=== PATIENT | male | born 1940 | race Caucasian/White ===

== ENCOUNTER → 2018-07-28 | Outpatient (CLI) | payer MEDICARE, OTHER ==
[~2018-07-28] MED LIST: ACET500T68 PO; AZIT250T PO; BUDE10.22 IH; CIPR500T94 PO; DOCU100C28 PO; DOXY100T10 PO; FLUT16SP NS; FLUT9.9S NS; HYDR25TA PO; LACT1CAP2 PO; LEVO50TA PO; LOSA100T14 PO; MONT10TA6 PO; MULT-460 PO; OMEP20CA9 PO; PRED20TA PO; PRED5DRO16 NS; PREG50CA PO; PSYL0.526 PO; TAMS0.4C97 PO; TRAZ-85 PO; VENTOLIN HFA18 GM INH
--- NOTE | 2018-07-28 16:27 | EKG ---
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
[2018-07-28 16:34] LABS: BASO # 0.2 x10^3/uL (0.0-0.2); BASO % 2 % (0-3); EOS # 0.7 x10^3/uL (0.0-0.7); EOS % 9 % (0-3); HEMATOCRIT 42.5 % (39.0-53.0); HEMOGLOBIN 13.8 g/dL (13.0-17.5); LYMPH # 2.3 x10^3/uL (1.0-4.8); LYMPH % 27 % (24-48); MEAN CORPUSCULAR HEMOGLOBIN 28 pg (25-35); MEAN CORPUSCULAR HGB CONC 33 g/dL (31-37); MEAN CORPUSCULAR VOLUME 87 fL (79-100); MONO # 0.6 x10^3/uL (0.0-1.1); MONO % 7 % (0-9); NEUT # 4.7 x10^3uL (1.8-7.7); NEUT % 55 % (31-73); PLATELET COUNT 271 x10^3/uL (140-400); RED BLOOD COUNT 4.87 x10^6/uL (4.30-5.70); RED CELL DISTRIBUTION WIDTH 14.7 % (11.5-14.5); WHITE BLOOD COUNT 8.5 x10^3/uL (4.0-11.0)
[2018-07-28 16:51] LABS: ALBUMIN 3.9 g/dL (3.4-5.0); ALBUMIN/GLOBULIN RATIO 1.3 (1.0-1.7); GFR 72.8; POTASSIUM 4.4 mmol/L (3.5-5.1); TOTAL BILIRUBIN 0.4 mg/dL (0.2-1.0); TOTAL PROTEIN 6.9 g/dL (6.4-8.2)
== END | disposition home or self-care (01) ==
LOC: SURGPAT 13:20
PROVIDERS: ATTEND Neurological Surgery
DX: Z01.818 Encounter for other preprocedural examination (principal); M48.02 Spinal stenosis, cervical region; I10 Essential (primary) hypertension
CPT/HCPCS: 36415; 80053; 85025; 87641; 93005

== ENCOUNTER → 2018-10-06 | Outpatient (CLI) | payer MEDICARE, OTHER ==
[2018-08-08 11:00] VITALS: BP 167/91
[~2018-10-06] MED LIST changes: +CEPH500C PO; +HYDR-2761 PO; +OMEP20CA10 PO; -OMEP20CA9 PO; +TRAM50TA PO; +TRAZ-118 PO; -TRAZ-85 PO
[2018-10-06 15:14] LABS: BASO # 0.1 x10^3/uL (0.0-0.2); BASO % 1 % (0-3); EOS # 0.6 x10^3/uL (0.0-0.7); EOS % 8 % (0-3); HEMATOCRIT 39.4 % (39.0-53.0); HEMOGLOBIN 12.8 g/dL (13.0-17.5); LYMPH # 1.8 x10^3/uL (1.0-4.8); LYMPH % 25 % (24-48); MEAN CORPUSCULAR HEMOGLOBIN 28 pg (25-35); MEAN CORPUSCULAR HGB CONC 33 g/dL (31-37); MEAN CORPUSCULAR VOLUME 85 fL (79-100); MONO # 0.5 x10^3/uL (0.0-1.1); MONO % 6 % (0-9); NEUT # 4.5 x10^3uL (1.8-7.7); NEUT % 60 % (31-73); PLATELET COUNT 258 x10^3/uL (140-400); RED BLOOD COUNT 4.66 x10^6/uL (4.30-5.70); WHITE BLOOD COUNT 7.5 x10^3/uL (4.0-11.0)
[2018-10-06 15:24] LABS: PROTHROMBIN TIME PATIENT 13.5 SEC (11.7-14.0)
[2018-10-06 15:31] LABS: ALBUMIN 3.6 g/dL (3.4-5.0); ALBUMIN/GLOBULIN RATIO 1.3 (1.0-1.7); CALCIUM 8.6 mg/dL (8.5-10.1); GFR 72.8; POTASSIUM 4.3 mmol/L (3.5-5.1); TOTAL BILIRUBIN 0.4 mg/dL (0.2-1.0); TOTAL PROTEIN 6.4 g/dL (6.4-8.2)
== END | disposition home or self-care (01) ==
LOC: SURGPAT 14:07
PROVIDERS: ATTEND Neurological Surgery
DX: Z01.818 Encounter for other preprocedural examination (principal); M51.14 Intervertebral disc disorders with radiculopathy, thoracic region; M48.04 Spinal stenosis, thoracic region; I10 Essential (primary) hypertension; Z79.2 Long term (current) use of antibiotics; Z79.899 Other long term (current) drug therapy; Z79.01 Long term (current) use of anticoagulants
CPT/HCPCS: 36415; 80053; 85025; 85610; 85730; 87641

== ENCOUNTER 2018-10-17 05:37 | Inpatient (IN) | payer MEDICARE, OTHER ==
--- NOTE | 2018-10-16 15:51 | PREOP HP ---
DATE OF SERVICE: 10/17/2018. HISTORY OF PRESENT ILLNESS: The patient is a pleasant 77-year-old who 2 months ago underwent an ACDF at C5-C6 and C6-C7 for cervical spinal stenosis. He notes improving neck pain. He continues to have trouble with his right arm and hands, though. He says that he remains uncoordinated. He does continue to note some pain in the medial superior right scapula. He feels his balance is satisfactory, although he is using a cane. He is also having problems with low back pain and can have left leg pain. He has trouble getting up and down and walking any distance because of that. At the time of his cervical surgery, which was an ACDF at C5-C6 and C6-C7, he was noted to have a herniated disc on the right at T1-T2. PAST MEDICAL HISTORY: Arthritis, asthma, COPD, headaches and migraines, head or neck injury, heart murmur, hypertension, scarlet fever. PAST SURGICAL HISTORY: Broken right ankle in 1949, hemorrhoidectomy in 1994, subdural hematoma in 2010, right knee replacement in 2015, right shoulder replacement in 2016, ACDF C5-C6 and C6-C7 in 07/2018. FAMILY HISTORY: Alzheimer's disease and hypertension. SOCIAL HISTORY: Retired. . Exercises daily. Denies substance abuse. Denies current tobacco use. Formal alcohol use. Drinks coffee and soda daily. ALLERGIES: ASPIRIN, PENICILLIN, NSAIDS and STATINS. CURRENT MEDICATIONS: Robaxin, Lyrica, losartan, trazodone, Flomax, Synthroid, omeprazole, psyllium, docusate sodium, multivitamin, acidophilus, Tylenol, Flonase, prednisone, montelukast sodium, albuterol, Symbicort, Zithromax, prednisone, ciprofloxacin sinus rinse, tramadol. REVIEW OF SYSTEMS: A 12-point review of systems was obtained and is noncontributory except for that mentioned above. PHYSICAL EXAMINATION: NEUROSURGERY EXAMINATION: GENERAL APPEARANCE: Pleasant, in no acute distress. HEAD: Normocephalic and atraumatic. NECK AND THYROID: Mild to moderate tenderness with palpation of the posterior cervical region. Incision well healed. SKIN: Warm and dry. MUSCULOSKELETAL: Cervical range of motion restricted. EXTREMITIES: No clubbing, cyanosis, or edema. NEUROLOGIC: Alert and oriented. Strength is 5/5 in upper and lower extremities bilaterally except for abduction and adduction of his fingers in the right side along with a 4/5 right flexor digiti minimi, sensory intact to light touch in the upper and lower extremities except for decrease sensation involving the little finger and ulnar side of the right hand, reflexes trace and symmetric in upper and lower extremities, ambulates with a cane. IMAGING: I reviewed his previous imaging studies. T1-T2 on the right, there is moderately large disc herniation. ASSESSMENT/ PLAN: At this point, we need to move forward with his cervical thoracic microdecompressive and microdiscectomy surgery via posterior costotransversectomy approach. I discussed this with the patient and his . We are going to move forward with this. I outlined the risks in the past as well as the surgery and the technique. We reviewed this again. He understands. He would like to go ahead. We will make the arrangements. MERCEDEZ PADRON MD DR: SHELDON/madi JOB#: [id number] / [id number] BOZENA
[~2018-10-17] VITALS: Ht 172.7 cm; Wt 86.2 kg
[2018-10-17] VITALS (11 sets, daily range): BP systolic 125–158; BP diastolic 79–110
[~2018-10-17 05:37] MED LIST changes: -TRAM50TA PO
[2018-10-17] MEDS ORDERED: BUPIVAC MPF-EPI 0.5%-1:200000 30 ML VIAL. ONE (05:51)
[2018-10-17] MEDS ORDERED: GELATIN SPONGE SIZE 100. ONE (05:51)
[2018-10-17] MEDS ORDERED: KETOROLAC 60 MG/2 ML INJ FOR OR. ONE (05:52)
[2018-10-17] MEDS ORDERED: THROMBIN TOPICAL 20,000 UNIT SPRAY.SYRN KIT TP ONE (05:52)
[2018-10-17] MEDS ORDERED: VANCOMYCIN 1GM IVPB FOR OMNI 250 ML IV ONE (06:00)
[2018-10-17] MEDS ORDERED: BACITRACIN 50,000 UNIT in IV NORMAL SALINE 1000ML BAG 1,000 ML IRR ONE (06:00)
[2018-10-17] MEDS ORDERED: fentaNYL PF VIAL 100 MCG/2 ML VIAL IV PRN (07:00)
[2018-10-17] MEDS ORDERED: HYDROmorphone 2 MG/ML VIAL IV PRN (07:00)
[2018-10-17] MEDS ORDERED: IV RINGERS,LACTATED 1000ML 1,000 ML IV SCH (07:00)
[2018-10-17] MEDS ORDERED: MORPHINE SULFATE 2 MG/ML VIAL. IV PRN (07:00)
[2018-10-17] MEDS ORDERED: PROCHLORPERAZINE 10 MG/2 ML VIAL. IV PRN (07:00)
[2018-10-17] MEDS ORDERED: TRAM50TA PO (07:21)
[2018-10-17] MEDS ORDERED: LIDOCAINE 2% PF 5 ML VIAL. ONE (07:56)
[2018-10-17] MEDS ORDERED: PROPOFOL 50 ML IV ONE ×3 (07:56→12:27)
[2018-10-17] MEDS ORDERED: DEXAMETHASONE SOD PHOS 20 MG/5 ML VIAL. ONE (07:56)
[2018-10-17] MEDS ORDERED: PROPOFOL 20 ML IV ONE (07:56)
[2018-10-17] MEDS ORDERED: REMIFENTANIL 2 MG VIAL. IV ONE (07:57)
[2018-10-17] MEDS ORDERED: PHENYLEPHRINE 10 MG/ML VIAL. ONE (07:57)
[2018-10-17] MEDS ORDERED: ROCURONIUM 50 MG/5 ML VIAL. ONE (07:57)
[2018-10-17] MEDS ORDERED: GLYCOPYRROLATE 1 MG/5 ML VIAL. ONE (09:06)
[2018-10-17] MEDS ORDERED: ePHEDrine PF IN SALINE 50 MG/10 ML SYRINGE. IV ONE (09:24)
[2018-10-17] MEDS ORDERED: NEOSTIGMINE METHYLSULFATE 5 MG/5 ML SYRINGE. ONE (09:31)
[2018-10-17] MEDS ORDERED: DESFLURANE > 120 MINUTES IH ONE (11:07)
[2018-10-17] MEDS ORDERED: ONDANSETRON PF 4 MG/2 ML VIAL. ONE (12:23)
[2018-10-17] MEDS ORDERED: fentaNYL PF VIAL 100 MCG/2 ML VIAL ONE ×2 (12:37→13:27)
[2018-10-17] MEDS ORDERED: ACETAMINOPHEN 325 MG TABLET. PO PRN (13:45)
[2018-10-17] MEDS ORDERED: traMADol 50 MG TABLET PO PRN (13:45)
[2018-10-17] MEDS ORDERED: MAG HYDROX/ALUMINUM HYD/SIMETH 30 ML ORAL.SUSP PO PRN (13:45)
[2018-10-17] MEDS ORDERED: FLUTICASONE 50MCG/NASAL SPRAY 16GM BOTTLE. NS PRN (13:45)
[2018-10-17] MEDS ORDERED: MAGNESIUM HYDROXIDE 2,400 MG/30 ML ORAL.SUSP. PO PRN (13:45)
[2018-10-17] MEDS ORDERED: 0.9 % SODIUM CHLORIDE 10 ML DISP.SYRIN. IV PRN (13:45)
[2018-10-17] MEDS ORDERED: diphenhydrAMINE HCL 25 MG CAPSULE PO PRN (13:45)
[2018-10-17] MEDS ORDERED: CALCIUM CARBONATE 500 MG TAB.CHEW PO PRN (13:45)
[2018-10-17] MEDS: fentaNYL PF VIAL 100 MCG/2 ML VIAL IV PRN ×5 (13:49→20:03)
--- NOTE | 2018-10-17 14:15 | NUR ---
Admitted from PACU per bed, alert/oriented, dressing clean dry & intact to thoracic area, states discomfort level 4-5/10, ice pack to area, bilateral JESSICA hose in place, bilateral HOLLEY in place, IVF infusing into right wrist area, noted red chloe across chest from surgical positioning, oriented to surroundings, spouse at bedside, side rails up x2, call light in reach.
[2018-10-17] MEDS ORDERED: ACETAMINOPHEN 500 MG TABLET PO PRN (14:45)
[2018-10-17] MEDS: LOSARTAN POTASSIUM 50 MG TABLET. PO SCH (15:00)
[2018-10-17] MEDS ORDERED: FLUTICASONE 50MCG/NASAL SPRAY 16GM BOTTLE. NS SCH (15:00)
--- NOTE | 2018-10-17 16:23 | RAD ---
CT thoracic spine without contrast History: Back pain Axial helical images of the thoracic spine were obtained without contrast. Axial, coronal and sagittal reconstruction was performed. Findings: The vertebral bodies are aligned. There is no loss of vertebral body stature. Evaluation of the central canal is limited without contrast. There is no evidence of significant central or neuroforaminal stenosis. There's been prior anterior anterior fusion of C5-C7. There is degenerative changes with multilevel central and neuroforaminal stenosis of the C3-C7 spine. Impression: Degenerative changes of the C-spine with prior anterior fusion. No acute findings. No significant central or neuroforaminal stenosis of the thoracic spine. PQRS Compliance Statement: One or more of the following individualized dose reduction techniques were utilized for this examination: 1. Automated exposure control 2. Adjustment of the mA and/or kV according to patient size 3. Use of iterative reconstruction technique Electronically signed by: Leobardo Sosa III, MD (10/17/2018 4:20 PM) [facility]
[2018-10-17] MEDS: PANTOPRAZOLE 40 MG TABLET.DR. PO SCH (16:40)
--- NOTE | 2018-10-17 16:59 | NUR ---
Attempting to void, notified of catheter in use during surgical procedure
[2018-10-17] MEDS: POTASSIUM CL 20MEQ D5-0.45NACL 1,000 ML IV SCH (17:03)
[2018-10-17] MEDS: METHOCARBAMOL 750 MG TABLET PO SCH ×2 (17:04→21:15)
[2018-10-17] MEDS: PREGABALIN 50 MG CAPSULE PO SCH ×2 (17:05→21:15)
[2018-10-17] MEDS: LACTOBACILLUS RHAMNOSUS GG 1 CAPSULE. PO SCH (17:05)
[2018-10-17] MEDS: oxyCODONE/APAP 5/325 1 TAB TABLET PO PRN ×3 (17:05→23:46)
[2018-10-17] MEDS: hydrOXYzine PAMOATE 25 MG CAPSULE PO SCH ×2 (17:06→21:15)
[2018-10-17] MEDS: POLYVINYL ALCOHOL 1.4% OPHTH SOLUTION 15ML BOTTLE. OU PRN (17:07)
--- NOTE | 2018-10-17 17:14 | NUR ---
Voided 100cc of clear yellow urine, taking oral fluids
[2018-10-17] MEDS: DEXAMETHASONE SOD PHOS 4 MG/ML VIAL IV SCH ×2 (17:38→23:45)
[2018-10-17] MEDS ORDERED: methylPREDNISolone SOD SUCC PF 40 MG/ML VIAL. IV SCH (18:00)
[2018-10-17] MEDS: BUDESONIDE 0.5 MG/2 ML NEBU. NEB SCH (19:58)
[2018-10-17] MEDS: ALBUTEROL SULFATE 2.5 MG/3 ML NEBU. NEB SCH ×2 (19:58→23:38)
[2018-10-17] MEDS: PSYLLIUM HUSK (SUGAR FREE) 1 PKT PACKET PO SCH (21:00)
[2018-10-17] MEDS ORDERED: NON FORMULARY ITEM (Fluticasone Propionate (Flonase Allergy Relief) 2 SPRAYS) NS SCH (21:00)
[2018-10-17] MEDS ORDERED: PREDNISOLONE ACETATE NS SCH (21:00)
[2018-10-17] MEDS ORDERED: traZODone 50 MG TABLET. PO SCH (21:00)
[2018-10-17] MEDS ORDERED: MONTELUKAST SODIUM 10 MG TABLET. PO SCH (21:00)
[2018-10-17] MEDS ORDERED: NON FORMULARY ITEM (Budesonide/Formoterol Fumarate (Symbicort 80-4.5 Mcg Inhaler) 2 PUFF) IH SCH (21:00)
[2018-10-17] MEDS ORDERED: DOCUSATE SODIUM 100 MG CAPSULE. PO SCH (21:00)
[2018-10-17] MEDS: DOCUSATE SODIUM 100 MG CAPSULE. PO SCH (21:16)
[2018-10-17] MEDS: FLUTICASONE 50MCG/NASAL SPRAY 16GM BOTTLE. NS SCH (21:17)
[2018-10-18] MEDS: fentaNYL PF VIAL 100 MCG/2 ML VIAL IV PRN (01:26)
[2018-10-18] MEDS: POTASSIUM CL 20MEQ D5-0.45NACL 1,000 ML IV SCH (02:56)
[2018-10-18 03:30] VITALS: BP 156/83
[2018-10-18] MEDS: oxyCODONE/APAP 5/325 1 TAB TABLET PO PRN ×2 (05:47→12:07)
[2018-10-18] MEDS: PANTOPRAZOLE 40 MG TABLET.DR. PO SCH (05:47)
[2018-10-18] MEDS: DEXAMETHASONE SOD PHOS 4 MG/ML VIAL IV SCH (05:48)
[2018-10-18] MEDS ORDERED: LEVOTHYROXINE 50 MCG TABLET PO SCH (06:00)
[2018-10-18 07:00] VITALS: BP 130/75
[2018-10-18] MEDS: BUDESONIDE 0.5 MG/2 ML NEBU. NEB SCH (07:23)
[2018-10-18] MEDS: ALBUTEROL SULFATE 2.5 MG/3 ML NEBU. NEB SCH ×2 (07:23→11:19)
[2018-10-18] MEDS: LACTOBACILLUS RHAMNOSUS GG 1 CAPSULE. PO SCH (08:32)
[2018-10-18] MEDS: hydrOXYzine PAMOATE 25 MG CAPSULE PO SCH (08:32)
[2018-10-18] MEDS: METHOCARBAMOL 750 MG TABLET PO SCH ×2 (08:33→12:07)
[2018-10-18] MEDS: PSYLLIUM HUSK (SUGAR FREE) 1 PKT PACKET PO SCH (08:34)
[2018-10-18] MEDS: DOCUSATE SODIUM 100 MG CAPSULE. PO SCH (08:34)
[2018-10-18] MEDS: PREGABALIN 50 MG CAPSULE PO SCH (08:34)
[2018-10-18] MEDS: FLUTICASONE 50MCG/NASAL SPRAY 16GM BOTTLE. NS SCH (08:35)
[2018-10-18] MEDS: LOSARTAN POTASSIUM 50 MG TABLET. PO SCH (08:35)
[2018-10-18] MEDS: POLYVINYL ALCOHOL 1.4% OPHTH SOLUTION 15ML BOTTLE. OU PRN (08:35)
[2018-10-18] MEDS ORDERED: MULTIVITAMIN with MINERAL TABLET. PO SCH (09:00)
--- NOTE | 2018-10-18 09:35 | NUR ---
resting quietly with eyes closed. at bedside. he has good sensation in bilateral hands except for his right ring and little finger. plans examiner are equal and strong, good pulses bilaterally. 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 original surgical dressing removed. has swelling at the top of incision; cleansed with ChloraPrep then Aquacel foam applied. he had a small amount of serosanguineous drainage.
[2018-10-18] MEDS ORDERED: AZITHROMYCIN 250 MG TABLET. PO SCH (10:00)
[2018-10-18 11:00] VITALS: BP 113/71
--- NOTE | 2018-10-18 12:11 | NUR ---
reviewed written discharge instructions with sophia and Honey regarding activities of daily living such as bathing driving lifting restrictions and activity. demonstrated dressing changes; supplies given. reviewed medications and new and discussed one to be taken today; both verbalized understanding
--- NOTE | 2018-10-20 17:06 | PATHOLOGY ---
[facility] Accession Number: [id number] . 01 Material submitted: . vertebral column - THORACIC DISC AND DECOMPRESSION . 01 Clinical history: . Radiculopathy, thoracic herniated disc, stenosis . 02 Diagnosis: Segments of fibrocartilaginous tissue and bone, thoracic disc and decompression: - Degenerative changes of fibrocartilaginous tissue with focal granulomatous inflammatory reaction. 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 02 Comment: There is no evidence of an acute inflammatory process or malignancy. 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 02 Electronically signed: . Derek Griffith MD, Pathologist NPI- [id number] . 01 Gross description: . Received in formalin labeled "Adria Echeverria, thoracic disc and decompression," are several pieces of glistening, fibrous tissue measuring 3.0 x 1.5 x 0.8 cm in aggregate dimensions, containing small fragments of possible bone. The tissue submitted representatively in cassette A1, following decalcification. (TSD; 10/17/2018) TOB/TOB . 02 Pathologist provided ICD-10: M51.14, M99.72 . 02 CPT . 141975, 360293 Specimen Comment: A courtesy copy of this report has been sent to Specimen Comment: [phone], . Specimen Comment: Report sent to / DR CULVER Performed at: 01 [facility] [address], [place], [place] [id number] MD Jose Luis Pinzon MD Phone: [phone] Performed at: 02 [facility] [address] [place], [place] [id number] MD Derek Griffith MD Phone: [phone]
--- NOTE | 2018-10-25 02:43 | OP ---
DATE OF SURGERY: 10/17/2018 PREOPERATIVE DIAGNOSIS: T1-T2 herniated nucleus pulposus on the right with right cervical radiculopathy. POSTOPERATIVE DIAGNOSIS: T1-T2 herniated nucleus pulposus on the right with right cervical radiculopathy. OPERATION PERFORMED: 1. Right lateral canal and transfacet exposure, T1-T2, right with T1-T2 discectomy and decompression of the right T1 nerve root. 2. Right canal laminectomy, T1 with decompression and visualization of the right C8 nerve root. 3. The operation done with EMG monitoring, SSEP monitoring, motor evoked potentials, fluoroscopy, microscopic dissection, BrainLAB guidance. SURGEON: Nathen Padron M.D. MEDICAL SECRETARY RECEPTIONIST: EVONNE Ponce assisted with the surgery. She assisted with the exposure, the microdecompression and decompression of the lateral side of the canal as well as the closure. OPERATIVE INDICATIONS: The patient is a very pleasant 77-year-old who initially presented with problems of cervical stenosis and right hand weakness as well as numbness, which radiated into his axillary region and into the lateral forearm and hand along with significant hand weakness. On imaging studies, he had a large T1-T2 thoracic disc herniation on the right side, which was compressing the right canal as well as the exiting nerve root at that level, and I recommended microsurgical decompression after he had undergone an anterior cervical discectomy and fusion for cervical spinal stenosis and that had been dealt with. He understood the surgery and the risks, the technique and he wished to go ahead. DESCRIPTION OF PROCEDURE: Following general endotracheal anesthesia, the patient was positioned prone on the Remi table. The thoracic region was then prepped and draped in a standard fashion. JESSICA hose and AV impulse boots were applied for DVT prophylaxis. A microscope was draped. Fluoroscopy was draped and brought into the field. Vancomycin 1 g was given prior to surgery. I made a small incision over the C6 spinous process and attached the BrainLAB system and started at this location and initialized the BrainLAB. I then made an incision extending from C7 through T1-T2, dissected down through skin and subcutaneous tissue and reflected the paraspinal muscles to the right side and placed self-retaining retractor. I brought in the microscope during this time. Through the microscope, I used a high speed air drill to first drill along the lateral edge of the canal at T1-T2. I identified the pedicle of T2 and then working superiorly, I visualized the nerve root and followed this laterally and fully decompressed this carrying my decompression out toward the costal attachment. I then, working more medially, visualized the disc space at T1-T2 and then drilled the lateral canal superiorly exposing the dura and trimmed away ligamentum flavum again exposing the dura and visualizing the T1 nerve root, it was lifted and tightly compressed. I gently developed a plane beneath this and beneath the dura with the blunt hook. I incised the posterior ligament and I began to perform a discectomy with pituitary rongeurs opening up slightly the disc space at T1-T2. The disc was hard and I gently retracted the dura medially and then began to drill into this material and trimmed this with a 2 mm micro Kerrison, but as I worked, I was able to remove significant disc material from this location and gradually decompress the nerve root working superiorly along the lateral aspect of the dura. Then, I carried this up to the C7-T1 region. Working around the pedicle of T1 and visualizing the takeoff of the C8 root and assured myself that that root was not under any significant pressure in that location. I then irrigated copiously. I felt that I had an excellent decompression. The roots were very free. I irrigated. I then removed the retractor, irrigated the muscle, obtained excellent hemostasis and I closed the wound in layers with absorbable suture. The skin was closed with 4-0 subcuticular stitch. The operation went very well and the patient went to the recovery room in excellent condition. I was quite pleased with the surgery. NATHEN PADRON MD DR: SHELDON/madi JOB#: [id number] / [id number] BOZENA
== END 2018-10-18 13:10 | disposition home or self-care (01) | DRG 520 ==
LOC: OPSVCIP 05:37 → EDSTATUS 08:30 → 4 SOUTHEST 14:15
PROVIDERS: ADMIT Neurological Surgery; ATTEND Neurological Surgery
PROC: 01N80ZZ Release Thoracic Nerve, Open Approach (ICD-10-PCS; 2018-10-17)
PROC: 4A11X4G Monitoring of Peripheral Nervous Electrical Activity, Intraoperative, External Approach (ICD-10-PCS; 2018-10-17)
PROC: 0RB90ZZ Excision of Thoracic Vertebral Disc, Open Approach (ICD-10-PCS; principal; 2018-10-17 08:30)
DX: M51.14 Intervertebral disc disorders with radiculopathy, thoracic region (principal); M50.122 Cervical disc disorder at C5-C6 level with radiculopathy; M50.123 Cervical disc disorder at C6-C7 level with radiculopathy; M50.223 Other cervical disc displacement at C6-C7 level; M51.24 Other intervertebral disc displacement, thoracic region; I10 Essential (primary) hypertension; J44.9 Chronic obstructive pulmonary disease, unspecified; Z82.0 Family history of epilepsy and other diseases of the nervous system; Z82.49 Family history of ischemic heart disease and other diseases of the circulatory system; Z96.651 Presence of right artificial knee joint; Z96.611 Presence of right artificial shoulder joint; G43.909 Migraine, unspecified, not intractable, without status migrainosus; M19.90 Unspecified osteoarthritis, unspecified site
CPT/HCPCS: 36415; 72131; 76000; 86850; 86900; 86901; 88304; 88311; 94640; A7015; J0171; J1100; J1885; J2001; J2405; J2704; J2710; J3010; J3370; J3490; J7030; J7120; J7613; J7626; Q0144; Q0177; 97116

== ENCOUNTER → 2018-12-23 | Outpatient (CLI) | payer MEDICARE, OTHER ==
[~2018-12-23] MED LIST changes: +METH-38 PO; +MONT10TA49 PO; -MONT10TA6 PO; +OXYC1TAB15 PO; +TRAM50TA PO
== END | disposition home or self-care (01) ==
LOC: SURGPAT 11:55
PROVIDERS: ATTEND Neurological Surgery
DX: Z01.818 Encounter for other preprocedural examination (principal); M51.16 Intervertebral disc disorders with radiculopathy, lumbar region; Z88.0 Allergy status to penicillin; Z88.6 Allergy status to analgesic agent; Z88.8 Allergy status to other drugs, medicaments and biological substances
CPT/HCPCS: 36415; 87641

== ENCOUNTER 2019-01-01 06:25 | Observation (INO) | payer MEDICARE, OTHER ==
--- NOTE | 2018-12-31 15:23 | PREOP HP ---
DATE OF SERVICE: 01/01/2019 DATE OF SURGERY: 01/01/2019 HISTORY OF PRESENT ILLNESS: The patient is a pleasant 78-year-old who has severe cervical stenosis as well as upper thoracic disk herniation in the past that has been dealt with. His current problem is significant low back pain, which radiates primarily to his right hip and right anterior thigh. He notes right greater than left knee and leg pain. He has had problems for many years, but the problems have been worsening over the last several months. He does take oxycodone three per day. He also takes Robaxin. He is continuing to notice interscapular pain. PAST MEDICAL HISTORY: Arthritis, asthma, COPD, headache or migraine, head or neck injury, heart murmur, hypertension, scarlet fever. PAST SURGICAL HISTORY: Broken right ankle 1948, hemorrhoidectomy 1994, subdural hematoma in 2010, right knee replacement in 2005, right shoulder replacement in 2016 and ACDF C5-C6, C6-C7 in 07/2018; T1-T2 right microdiskectomy in 09/2018. FAMILY HISTORY: Alzheimer's disease and hypertension. SOCIAL HISTORY: Retired. . Exercises daily. Denies substance abuse. Denies current tobacco use. Former alcohol use. Drinks coffee and soda daily. ALLERGIES: TO ASPIRIN, PENICILLIN, NSAIDS, AND STATINS. CURRENT MEDICATIONS: Robaxin, Lyrica, losartan, trazodone, hydroxyzine, Flomax, Synthroid, omeprazole, psyllium, docusate, multivitamin, acidophilus, Tylenol, Flonase, montelukast, albuterol, Symbicort, Zithromax, prednisone, doxycycline, ciprofloxacin, sinus rinse, tramadol, cephalexin, methocarbamol, Percocet. REVIEW OF SYSTEMS: A 12-point review of systems was obtained and is noncontributory except for that mentioned above. PHYSICAL EXAMINATION: NEUROSURGERY EXAMINATION: GENERAL APPEARANCE: Alert, pleasant, no acute distress. HEAD: Normocephalic and atraumatic. SKIN: Warm and dry. MUSCULOSKELETAL: Lumbar paraspinal muscle bulk is normal, restricted range of motion of the lumbar spine, [id number] tenderness of the lower lumbar spine with palpation, normal range of motion of the lower extremities bilaterally. EXTREMITIES: No clubbing, cyanosis or edema. NEUROLOGIC: Alert and oriented x 3, normal recent and remote memory. Strength 5/5 in bilateral lower extremities except for 4+/5 right quadriceps. Sensory was intact to light touch in the lower extremities bilaterally. Reflexes were present and symmetric in the bilateral lower extremities, negative straight leg raising bilaterally. IMAGING: Reviewed. I have reviewed a lumbar MRI scan done, 11/21/2018. On that study, there is a new large right paramedian disk extrusion at L3-L4, which does extend superiorly between the L3 vertebral body and mass effect on the L3 nerve root as well as right L4 root. ASSESSMENT: Intervertebral disk disorders with radiculopathy, lumbar region. PLAN: He is having increasing pain along with feelings of weakness and unsteadiness related to his lower back and right leg pain. My recommendation is that he undergo lumbar microsurgery at L3-L4. I discussed this with him in detail. He understands the rationale, risks and expected postoperative course. He would like to go ahead. We will make the arrangements. MERCEDEZ PADRON MD DR: SHELDON/madi JOB#: [id number] / [id number]
[~2019-01-01] VITALS: Ht 170.2 cm; Wt 87.1 kg
[2019-01-01] VITALS (10 sets, daily range): BP systolic 125–165; BP diastolic 69–95
[~2019-01-01 06:25] MED LIST changes: +BACITRACIN 50,000 UNIT in IV NORMAL SALINE 1000ML BAG 1,000 ML IRR ONE; +BUPIVAC MPF-EPI 0.5%-1:200000 30 ML VIAL. ONE; +GELATIN SPONGE SIZE 12-7MM SPONGE. ONE; +KETOROLAC 60 MG/2 ML INJ FOR OR. ONE; +THROMBIN TOPICAL 20,000 UNIT SPRAY.SYRN KIT TP ONE
[2019-01-01] MEDS ORDERED: IV RINGERS,LACTATED 1000ML 1,000 ML IV SCH (07:00)
[2019-01-01] MEDS ORDERED: MORPHINE SULFATE 2 MG/ML VIAL. IV PRN (07:00)
[2019-01-01] MEDS ORDERED: PROCHLORPERAZINE 10 MG/2 ML VIAL. IV PRN (07:00)
[2019-01-01] MEDS ORDERED: HYDROmorphone 2 MG/ML VIAL IV PRN (07:00)
[2019-01-01] MEDS ORDERED: fentaNYL PF VIAL 100 MCG/2 ML VIAL IV PRN ×3 (07:00→12:00)
[2019-01-01] MEDS ORDERED: ONDANSETRON PF 4 MG/2 ML VIAL. IV PRN (07:00)
[2019-01-01] MEDS ORDERED: LIDOCAINE 1% PF 2 ML VIAL. ID PRN (07:00)
[2019-01-01] MEDS ORDERED: REMIFENTANIL 2 MG VIAL. IV ONE (07:41)
[2019-01-01] MEDS ORDERED: LIDOCAINE 2% PF 5 ML VIAL. ONE (07:41)
[2019-01-01] MEDS ORDERED: ROCURONIUM 50 MG/5 ML VIAL. ONE (07:41)
[2019-01-01] MEDS ORDERED: fentaNYL PF VIAL 100 MCG/2 ML VIAL ONE ×2 (07:41→12:02)
[2019-01-01] MEDS ORDERED: SUCCINYLCHOLINE 200 MG/10 ML VIAL. ONE (07:41)
[2019-01-01] MEDS ORDERED: PROPOFOL 20 ML IV ONE (07:41)
[2019-01-01] MEDS ORDERED: PROPOFOL 50 ML IV ONE ×2 (07:41→10:11)
[2019-01-01] MEDS ORDERED: 0.9 % SODIUM CHLORIDE 20 ML VIAL. IJ ONE (07:43)
[2019-01-01] MEDS ORDERED: ONDANSETRON PF 4 MG/2 ML VIAL. ONE (08:41)
[2019-01-01] MEDS ORDERED: DEXAMETHASONE SOD PHOS 20 MG/5 ML VIAL. ONE (08:41)
[2019-01-01] MEDS ORDERED: DESFLURANE > 120 MINUTES IH ONE (08:51)
[2019-01-01] MEDS ORDERED: PHENYLEPHRINE in 0.9% NACL PF 1 MG/10 ML SYRINGE. IV ONE (09:04)
[2019-01-01] MEDS ORDERED: ePHEDrine PF IN SALINE 50 MG/10 ML SYRINGE. IV ONE (09:27)
[2019-01-01] MEDS ORDERED: GELATIN SPONGE SIZE 12-7MM SPONGE. ONE ×2 (09:37→09:39)
--- NOTE | 2019-01-01 11:08 | DISCH ---
DISCHARGE INSTRUCTIONS Condition on Discharge Condition on Discharge: Stable Activity After Discharge Activity Instructions for Disc: Activity as tolerated, Avoid exertion, Walk in house Bathing Instructions: Shower-keep dressing dry Lifting Instructions after Dis: No heavy lifting, No pulling or pushing, Do not lift >10 pounds Exercise Instruction after Dis: Progress as tolerated Driving Instructions after Dis: No driving for 2 weeks Weight Bearing Status after Di: No restrictions, Full weight bearing, As tolerated Diet after Discharge Diet after Discharge: Regular Additional Diet Restrictions: resume home diet Diet Texture: Regular Liquid Texture: Thin Liquid Swallowing Supervision: None needed Wound Incision Care Wound/Incision Care: Ice to area for comfort, Keep wound/cast CDI, Change dressing Other wound/incision instructi: may remove dressing in 48 hours if dry then may shower, no soaking Wound Care Equipment: Dressings Contacting the after DC Call your doctor for: Concerns you may have Follow-Up Follow up with: Dr. Padron's nurse in 2 weeks [phone] Treatment/Equipment after DC Adaptive Equipment Issued: None MERCEDEZ PADRON MD Jan 01, 2019 11:08
[2019-01-01] MEDS ORDERED: NALOXONE 0.4 MG/ML VIAL. IV PRN (12:00)
[2019-01-01] MEDS ORDERED: diphenhydrAMINE HCL 25 MG CAPSULE PO PRN (12:00)
[2019-01-01] MEDS ORDERED: diphenhydrAMINE 50 MG/ML VIAL IV PRN (12:00)
[2019-01-01] MEDS ORDERED: FLUTICASONE 50MCG/NASAL SPRAY 16GM BOTTLE. NS PRN (12:00)
[2019-01-01] MEDS ORDERED: MAG HYDROX/ALUMINUM HYD/SIMETH 30 ML ORAL.SUSP PO PRN (12:00)
[2019-01-01] MEDS ORDERED: oxyCODONE/APAP 5/325 1 TAB TABLET PO PRN ×2 (12:00)
[2019-01-01] MEDS ORDERED: MAGNESIUM HYDROXIDE 2,400 MG/30 ML ORAL.SUSP. PO PRN (12:00)
[2019-01-01] MEDS ORDERED: ACETAMINOPHEN 325 MG TABLET. PO PRN (12:00)
[2019-01-01] MEDS ORDERED: predniSONE 10 MG TABLET PO PRN (12:00)
[2019-01-01] MEDS ORDERED: ceFAZolin 2GM PREMIX 2 GM/50 ML BAG IV ONE (12:00)
[2019-01-01] MEDS ORDERED: CALCIUM CARBONATE 500 MG TAB.CHEW PO PRN (12:00)
[2019-01-01] MEDS ORDERED: 0.9 % SODIUM CHLORIDE 10 ML DISP.SYRIN. IV PRN (12:00)
--- NOTE | 2019-01-01 12:45 | NUR ---
Arrived to unit by cart from PACU. Alert and oriented x's 4. Able to scoot over to bed without difficulty. Moves all extremities. Noted right hand sl weaker than left. Pt states its much better prior to surgery. Lower back dressing d/i. IVF's intact and infusing. JESSICA's and HOLLEY's on bilaterally. Oriented to room and controls. Side rails up x's 2 with call in reach.
[2019-01-01] MEDS ORDERED: NON FORMULARY ITEM (Albuterol Sulfate (Ventolin Hfa Inhaler) 2 PUFF) INH SCH (13:00)
[2019-01-01] MEDS ORDERED: ACETAMINOPHEN 500 MG TABLET PO PRN (13:15)
[2019-01-01] MEDS: POTASSIUM CL 20MEQ D5-0.45NACL 1,000 ML IV SCH (13:30)
[2019-01-01] MEDS: METHOCARBAMOL 750 MG TABLET PO SCH ×2 (13:50→21:23)
[2019-01-01] MEDS: hydrOXYzine 25 MG TABLET PO SCH ×2 (13:50→21:23)
[2019-01-01] MEDS: ALBUTEROL SULFATE 2.5 MG/3 ML NEBU. NEB SCH ×2 (15:40→20:38)
[2019-01-01] MEDS: BUDESONIDE 0.5 MG/2 ML NEBU. NEB SCH (20:38)
[2019-01-01] MEDS ORDERED: NON FORMULARY ITEM (Budesonide/Formoterol Fumarate (Symbicort 80-4.5 Mcg Inhaler) 2 PUFF) IH SCH (21:00)
[2019-01-01] MEDS: PSYLLIUM HUSK (SUGAR FREE) 1 PKT PACKET PO SCH (21:00)
[2019-01-01] MEDS ORDERED: DOCUSATE SODIUM 100 MG CAPSULE. PO SCH (21:00)
[2019-01-01] MEDS ORDERED: traZODone 50 MG TABLET. PO SCH (21:00)
[2019-01-01] MEDS ORDERED: MONTELUKAST SODIUM 10 MG TABLET. PO SCH (21:00)
[2019-01-01] MEDS: DOCUSATE SODIUM 100 MG CAPSULE. PO SCH (21:23)
[2019-01-01] MEDS: oxyCODONE/APAP 5/325 1 TAB TABLET PO PRN (21:23)
[2019-01-01] MEDS: FLUTICASONE 50MCG/NASAL SPRAY 16GM BOTTLE. NS SCH (21:24)
[2019-01-02] MEDS: POTASSIUM CL 20MEQ D5-0.45NACL 1,000 ML IV SCH (02:50)
[2019-01-02 03:00] VITALS: BP 160/56
[2019-01-02] MEDS ORDERED: LEVOTHYROXINE 50 MCG TABLET PO SCH (06:00)
[2019-01-02 06:50] VITALS: BP 143/85
[2019-01-02] MEDS: BUDESONIDE 0.5 MG/2 ML NEBU. NEB SCH (07:00)
[2019-01-02] MEDS: ALBUTEROL SULFATE 2.5 MG/3 ML NEBU. NEB SCH ×2 (07:00→10:56)
[2019-01-02] MEDS ORDERED: PANTOPRAZOLE 40 MG TABLET.DR. PO SCH (07:30)
[2019-01-02] MEDS: METHOCARBAMOL 750 MG TABLET PO SCH (07:43)
[2019-01-02] MEDS: PSYLLIUM HUSK (SUGAR FREE) 1 PKT PACKET PO SCH (07:43)
[2019-01-02] MEDS: oxyCODONE/APAP 5/325 1 TAB TABLET PO PRN (07:44)
[2019-01-02] MEDS: DOCUSATE SODIUM 100 MG CAPSULE. PO SCH (07:44)
[2019-01-02] MEDS ORDERED: LOSARTAN POTASSIUM 50 MG TABLET. PO SCH (09:00)
[2019-01-02] MEDS ORDERED: LACTOBACILLUS RHAMNOSUS GG 1 CAPSULE. PO SCH (09:00)
[2019-01-02] MEDS ORDERED: MULTIVITAMIN with MINERAL TABLET. PO SCH (09:00)
[2019-01-02] MEDS: FLUTICASONE 50MCG/NASAL SPRAY 16GM BOTTLE. NS SCH (09:00)
[2019-01-02] MEDS ORDERED: AZITHROMYCIN 250 MG TABLET. PO SCH (09:00)
--- NOTE | 2019-01-02 10:30 | NUR ---
reviewed orally discharge instructions with Honey and his Valarie. demonstrated dressing change-she prefers to change dressing for a couple days after. supplies given
[2019-01-02] MEDS: hydrOXYzine 25 MG TABLET PO SCH (10:32)
[2019-01-02 13:55] VITALS: BP 113/63
--- NOTE | 2019-01-02 14:01 | PDOC ---
PROGRESS NOTES Subjective Subjective POD #1 back/ incision sore leg pain improved Objective Objective Vital Signs Date Time Temp Pulse Resp B/P (MAP) Pulse Ox O2 Delivery O2 Flow Rate FiO2 01/02/19 13:55 98.2 75 20 113/63 (80) 98 98.2 01/02/19 10:57 Room Air 01/01/19 22:23 99.0 Intake and Output 01/02/19 06:59 Intake Total 800 ml Output Total 875 ml Balance -75 ml Intake Oral 800 ml Output Urine Total 835 ml Estimated Blood Loss 40 ml # Voids 5 Physical Exam General: Alert, Oriented X3, Cooperative MUSCULOSKELETAL: Other (JONES) Skin: Other (dressing dry and intact) Plan Plan of Care dc home f/u 2 weeks Comment Review of Relevant I have reviewed the following items chloe (where applicable) has been applied. Medications Current Medications Bacitracin 89321 unit/Sodium Chloride 1,000 ml @ 1,000 mls/hr 1X ONCE IRR Last administered on 01/01/19at 09:22; Start 01/01/19 at 06:00; Stop 01/01/19 at 06:59; Status DC Ondansetron HCl (Zofran) 4 mg PRN Q6HRS PRN IV NAUSEA/VOMITING; Start 01/01/19 at 07:00; Stop 01/01/19 at 20:00; Status DC Fentanyl Citrate (Fentanyl 2ml Vial) 25 mcg PRN Q5MIN PRN IV MILD PAIN 1-3 Last administered on 01/01/19at 12:08; Start 01/01/19 at 07:00; Stop 01/01/19 at 20:00; Status DC Fentanyl Citrate (Fentanyl 2ml Vial) 50 mcg PRN Q5MIN PRN IV MODERATE TO SEVERE PAIN; Start 01/01/19 at 07:00; Stop 01/01/19 at 20:00; Status DC Morphine Sulfate (Morphine Sulfate) 1 mg PRN Q10MIN PRN IV SEVERE PAIN 7-10; Start 01/01/19 at 07:00; Stop 01/08/19 at 20:00 Ringer's Solution 1,000 ml @ 30 mls/hr Q24H IV Last administered on 01/01/19at 07:00; Start 01/01/19 at 07:00; Stop 01/01/19 at 18:59; Status DC Lidocaine HCl (Xylocaine-Mpf 1% 2ml Vial) 2 ml PRN 1X PRN ID PRIOR TO IV START; Start 01/01/19 at 07:00; Stop 01/01/19 at 20:00; Status DC Hydromorphone HCl (Dilaudid) 0.5 mg PRN Q10MIN PRN IV SEV PAIN, Second choice; Start 01/01/19 at 07:00; Stop 01/01/19 at 20:00; Status DC Prochlorperazine Edisylate (Compazine) 5 mg PACU PRN PRN IV NAUSEA, MRX1; Start 01/01/19 at 07:00; Stop 01/01/19 at 20:00; Status DC Cefazolin Sodium/ Dextrose 50 ml @ 100 mls/hr 1X PREOP PRN IV PRIOR TO PROCEDURE Last administered on 01/01/19at 09:03; Start 01/01/19 at 06:00; Stop 01/01/19 at 18:00; Status DC Bupivacaine HCl/ Epinephrine Bitart (Sensorcain-Mpf Epi 0.5%-1:750879) 30 ml STK-MED ONCE .ROUTE Last administered on 01/01/19 09:22; Start 01/01/19 at 06:23; Stop 01/01/19 at 07:23; Status DC Gelatin (Gelfoam Size 12-7mm) 1 each STK-MED ONCE .ROUTE Last administered on 01/01/19at 09:22; Start 01/01/19 at 06:23; Stop 01/01/19 at 07:23; Status DC Ketorolac Tromethamine (Toradol For Or Only) 60 mg STK-MED ONCE .ROUTE Last administered on 01/01/19at 09:22; Start 01/01/19 at 06:23; Stop 01/01/19 at 07:23; Status DC Thrombin 20,000 unit STK-MED ONCE TP Last administered on 01/01/19 09:22; Start 01/01/19 at 06:23; Stop 01/01/19 at 07:23; Status DC Gelatin (Gelfoam Size 12-7mm) 1 each STK-MED ONCE .ROUTE Last administered on 01/01/19 09:22; Start 01/01/19 at 06:23; Stop 7/11/19 at 07:23; Status DC Lidocaine HCl (Lidocaine Pf 2% Vial) 5 ml STK-MED ONCE .ROUTE ; Start 01/01/19 at 07:41; Stop 01/01/19 at 07:42; Status DC Propofol 20 ml @ As Directed STK-MED ONCE IV ; Start 01/01/19 at 07:41; Stop 01/01/19 at 07:42; Status DC Propofol 50 ml @ As Directed STK-MED ONCE IV ; Start 01/01/19 at 07:41; Stop 01/01/19 at 07:42; Status DC Fentanyl Citrate (Fentanyl 2ml Vial) 100 mcg STK-MED ONCE .ROUTE ; Start at 07:41; Stop 01/01/19 at 07:42; Status DC Remifentanil HCl (Ultiva) 2 mg STK-MED ONCE IV ; Start 01/01/19 at 07:41; Stop 01/01/19 at 07:42; Status DC Succinylcholine Chloride (Anectine) 200 mg STK-MED ONCE .ROUTE ; Start 01/01/19 at 07:41; Stop 01/01/19 at 07:42; Status DC Rocuronium [place] (Zemuron) 50 mg STK-MED ONCE .ROUTE ; Start 01/01/19 at 07:41; Stop 01/01/19 at 07:42; Status DC Sodium Chloride (SODIUM CHLORIDE 20ml) 20 ml STK-MED ONCE IJ ; Start 01/01/19 at 07:43; Stop 01/01/19 at 07:44; Status DC Dexamethasone Sodium Phosphate (Decadron) 20 mg STK-MED ONCE .ROUTE ; Start 01/01/19 at 08:41; Stop 01/01/19 at 08:42; Status DC Ondansetron HCl (Zofran) 4 mg STK-MED ONCE .ROUTE ; Start 01/01/19 at 08:41; Stop 01/01/19 at 08:42; Status DC Desflurane (Suprane) 90 ml STK-MED ONCE IH ; Start 01/01/19 at 08:51; Stop 01/01/19 at 08:52; Status DC Phenylephrine HCl (PHENYLEPHRINE in 0.9% NACL PF) 1 mg STK-MED ONCE IV ; Start 01/01/19 at 09:04; Stop 01/01/19 at 09:05; Status DC Ephedrine Sulfate (ePHEDrine PF IN SALINE SYRINGE) 50 mg STK-MED ONCE IV ; Start 01/01/19 at 09:27; Stop 01/01/19 at 09:28; Status DC Propofol 50 ml @ As Directed STK-MED ONCE IV ; Start 01/01/19 at 10:11; Stop 01/01/19 at 10:12; Status DC Gelatin (Gelfoam Size 12-7mm) 1 each STK-MED ONCE .ROUTE Last administered on 01/01/19at 10:38; Start 01/01/19 at 09:37; Stop 01/01/19 at 10:37; Status DC Gelatin (Gelfoam Size 12-7mm) 1 each STK-MED ONCE .ROUTE ; Start 01/01/19 at 09:39; Stop 01/01/19 at 10:40; Status DC Azithromycin (Zithromax) 250 mg DAILY PO Last administered on 01/02/19at 10:33; Start 01/02/19 at 09:00 Docusate Sodium (Colace) 100 mg BID PO ; Start 01/01/19 at 21:00; Status UNV Fluticasone Propionate (Flonase) 2 spray PRN DAILY PRN NS ELEVATED BP, SEE COMMENTS; Start 01/01/19 at 12:00; Stop 01/01/19 at 13:00; Status DC Hydroxyzine HCl (Atarax) 25 mg TID PO Last administered on 01/02/19at 10:32; Start 01/01/19 at 14:00 Montelukast Sodium (Singulair) 10 mg QHS PO Last administered on 01/01/19at 21:23; Start 01/01/19 at 21:00 Oxycodone/ Acetaminophen (Percocet 5/325) 1 tab PRN Q6HRS PRN PO PAIN; Start 01/01/19 at 12:00; Status Cancel Prednisone (Prednisone) 10 mg PRN DAILY PRN PO URI; Start 01/01/19 at 12:00 Acetaminophen (Tylenol) 500 mg PRN Q4HRS PRN PO MILD PAIN / TEMP; Start 01/01/19 at 13:15 Non-Formulary Medication (Albuterol Sulfate (Ventolin Hfa Inhaler)) 2 puff QID INH ; Start 01/01/19 at 13:00; Status UNV Non-Formulary Medication (Budesonide/ Formoterol Fumarate (Symbicort 80-4.5 Mcg Inhaler)) 2 puff BID IH ; Start 01/01/19 at 21:00; Status UNV Fluticasone Propionate (Flonase) 2 spray BID NS Last administered on 01/02/19 09:00; Start 01/01/19 at 21:00 Lactobacillus Rhamnosus (Culturelle) 1 cap DAILY PO Last administered on 01/02/19 07:43; Start 01/02/19 at 09:00 Levothyroxine Sodium (Synthroid) 50 mcg DAILY06 PO Last administered on 01/02/19 06:28; Start 01/02/19 at 06:00 Losartan Potassium (Cozaar) 100 mg DAILY PO Last administered on 01/02/19 07:47; Start 01/02/19 at 09:00 Methocarbamol (Robaxin) 750 mg TID PO Last administered on 01/02/19 07:43; Start 01/01/19 at 14:00 Multivitamins (Thera M Plus) 1 tab DAILY PO Last administered on 01/02/19 07:43; Start 01/02/19 at 09:00 Pantoprazole Sodium (Protonix) 40 mg DAILYAC PO Last administered on 01/02/19 06:28; Start 01/02/19 at 07:30 Psyllium Hydrophilic Mucilloid (Metamucil Fiber Packet) 1 pkt BID PO Last administered on 01/02/19 07:43; Start 01/01/19 at 21:00 Trazodone HCl (Desyrel) 50 mg QHS PO ; Start 01/01/19 at 21:00 Fentanyl Citrate (Fentanyl 2ml Vial) 100 mcg STK-MED ONCE .ROUTE ; Start 01/01/19 at 12:02; Stop 01/01/19 at 12:03; Status DC Fentanyl Citrate (Fentanyl 2ml Vial) 50 mcg PRN Q2HR PRN IV PAIN; Start 01/01/19 at 12:00 Acetaminophen (Tylenol) 650 mg PRN Q6HRS PRN PO MILD PAIN / TEMP; Start 01/01/19 at 12:00 Al Hydroxide/Mg Hydroxide (Mylanta Plus Xs) 30 ml PRN Q3HRS PRN PO HEARTBURN / GAS; Start 01/01/19 at 12:00 Calcium Carbonate/ Glycine (Tums) 500 mg PRN Q3HRS PRN PO INDIGESTION; Start 01/01/19 at 12:00 Diphenhydramine HCl (Benadryl) 25 mg PRN Q6HRS PRN PO ITCHING; Start 01/01/19 at 12:00 Diphenhydramine HCl (Benadryl) 25 mg PRN Q6HRS PRN IV ITCHING; Start 01/01/19 at 12:00 Naloxone HCl (Narcan) 0.1 mg PRN Q2MIN PRN IV ADMIN; Start 01/01/19 at 12:00 Sodium Chloride (Normal Saline Flush) 3 ml QSHIFT PRN IV AFTER MEDS AND BLOOD DRAWS; Start 01/01/19 at 12:00 Potassium Chloride/Dextrose/ Sod Cl 1,000 ml @ 75 mls/hr [id number] IV ; Start 01/01/19 at 13:30 Oxycodone/ Acetaminophen (Percocet 5/325) 1 tab PRN Q4HRS PRN PO MILD PAIN, 1ST CHOICE Last administered on 01/02/19at 07:44; Start 01/01/19 at 12:00 Oxycodone/ Acetaminophen (Percocet 5/325) 2 tab PRN Q4HRS PRN PO MODERATE PAIN, SEVERE PAIN; Start 01/01/19 at 12:00 Docusate Sodium (Colace) 100 mg BID PO Last administered on 01/02/19at 07:44; Start 01/01/19 at 21:00 Magnesium Hydroxide (Milk Of Magnesia) 2,400 mg PRN Q12HR PRN PO CONSTIPATION; Start 01/01/19 at 12:00 Albuterol Sulfate (Ventolin Neb Soln) 2.5 mg RTQID NEB Last administered on 01/02/19at 10:56; Start 01/01/19 at 16:00 Budesonide (Pulmicort) 0.5 mg RTBID NEB Last administered on 01/02/19at 07:00; Start 01/01/19 at 20:00 Cefazolin Sodium/ Dextrose (Ancef 2gm Premix) 2 gm STK-MED ONCE IV ; Start 01/01/19 at 12:00; Stop 01/02/19 at 11:53; Status DC Active Scripts Active Reported Robaxin-750 (Methocarbamol) 750 Mg Tablet 1 Tab PO TID Percocet 5-325 Mg Tablet (Oxycodone/Acetaminophen) 1 Each Tablet 1 Tab PO PRN Q6HRS PRN Prednisone 20 Mg Tablet 10 Mg PO DAILY PRN Singulair Tablet (Montelukast Sodium) 10 Mg Tablet 10 Mg PO DAILY Flonase Allergy Relief (Fluticasone Propionate) 9.9 Ml [place].susp 2 Sprays NS BID Acetaminophen 500 Mg Tablet 500 Mg PO PRN Q4-6HRS PRN Acidophilus (Lactobacillus Acidophilus) 1 Each Capsule 1 Each PO DAILY Docusate Sodium 100 Mg Capsule 100 Mg PO BID Psyllium Fiber (Psyllium Husk) 0.52 Gm Capsule 2 Tbs PO BID Omeprazole 20 Mg Capsule.dr 20 Mg PO BID Synthroid (Levothyroxine Sodium) 50 Mcg Tablet 50 Mcg PO DAILYAC Hydroxyzine Hcl 25 Mg Tablet 25 Mg PO TID Trazodone Hcl 50 Mg Tablet 30 Mg PO HS Losartan Potassium 100 Mg Tablet 100 Mg PO DAILY Multiple Vitamin (Multivitamin With Minerals) 1 Each Tablet 1 Each PO DAILY Fluticasone Propionate Nasal [place] (Fluticasone Propionate) 16 Gm [place].susp 2 [place] NS PRN DAILY PRN Zithromax (Azithromycin) 250 Mg Tablet 250 Mg PO DAILY Symbicort 80-4.5 Mcg Inhaler (Budesonide/Formoterol Fumarate) 10.2 Gm Hfa.aer.ad 2 Puff IH BID Ventolin Hfa Inhaler (Albuterol Sulfate) 18 Gm Hfa.aer.ad 2 Puff INH QID Vitals/I & O Vital Sign - Last 24 Hours 01/01/19 01/01/19 01/01/19 01/01/19 14:30 15:00 15:42 16:15 Temp 97.8 97.8 Pulse 77 70 70 Resp 16 18 20 B/P (MAP) 141/73 (95) 132/69 (90) 137/77 (97) Pulse Ox 97 98 O2 Delivery Room Air Room Air Room Air Room Air 01/01/19 01/01/19 01/01/19 01/01/19 18:33 20:00 20:39 22:23 Temp 97.8 97.8 Pulse 89 Resp 20 B/P (MAP) 125/72 (89) Pulse Ox 95 95 95 O2 Delivery Room Air Room Air Room Air Room Air O2 Flow Rate 99.0 99.0 99.0 01/01/19 01/02/19 01/02/19 01/02/19 23:18 03:00 06:50 07:02 Temp 98.2 97.8 97.8 98.2 97.8 97.8 Pulse 74 78 68 Resp 18 20 20 B/P (MAP) 132/74 (93) 160/56 (90) 143/85 (104) Pulse Ox 95 95 96 98 O2 Delivery Room Air Room Air Room Air 01/02/19 01/02/19 01/02/19 01/02/19 07:47 08:00 10:57 13:55 Temp 98.2 98.2 Pulse 91 75 Resp 20 B/P (MAP) 137/79 113/63 (80) Pulse Ox 98 98 O2 Delivery Room Air Room Air Intake and Output 01/01/19 01/01/19 01/02/19 14:59 22:59 06:59 Intake Total 100 ml 700 ml 0 ml Output Total 675 ml 200 ml Balance -575 ml 500 ml 0 ml MERCEDEZ PADRON MD Jan 02, 2019 14:01
--- NOTE | 2019-01-02 14:06 | NUR ---
reviewed written discharge instructions with patient and . reviewed medications and side effects and reviewed dressing changes and restrictions to activities of daily living. ready to go. dismissed to home with and personal belongings.
--- NOTE | 2019-01-03 00:05 | PATHOLOGY ---
[facility] Accession Number: [id number] . 01 Material submitted: . vertebral column - LUMBAR DISC AND DECOMPRESSION . 01 Clinical history: . Lumbar herniated disc with radiculopathy . 02 Diagnosis: Bone, cartilage and soft tissue, "lumbar disc and decompression": - Fragments of bone, cartilage and surrounding fibromuscular tissue consistent with lumbar decompression and disc. (SHA:sql report developer; 01/02/2019) MBR/01/02/2019 . 02 Electronically signed: . Elieser Diaz MD, Pathologist NPI- [id number] . 01 Gross description: . The specimen is received in formalin, labeled "Adria Echeverria, lumbar disc and decompression" and consists of multiple fragments of friable/fibrous pink ladd tissue, bone, and cartilage measuring 4.3 x 3.5 x 0.7 cm in aggregate. A equal opportunity representative portion is submitted in A1 following decalcification. (SDY; 01/01/2019) SYU/SYU . 02 Pathologist provided ICD-10: M51.26, M54.16 . 02 CPT . 690506, [id number] Specimen Comment: A courtesy copy of this report has been sent to Specimen Comment: [phone], . Specimen Comment: Report sent to / DR CULVER Performed at: 01 [facility] [address], [place] [id number] MD Jose Luis Pinzon MD Phone: [phone] Performed at: 02 [facility] [address] [place], [place] [id number] MD Derek Griffith MD Phone: [phone]
--- NOTE | 2019-01-05 19:17 | OP ---
DATE OF SURGERY: 01/01/2019 PREOPERATIVE DIAGNOSES: Herniated lumbar disk, L3-L4, right with superiorly extruded fragment and lumbar radiculopathy. POSTOPERATIVE DIAGNOSES: Herniated lumbar disk, L3-L4, right with superiorly extruded fragment and lumbar radiculopathy. OPERATION PERFORMED: Hemilaminotomy and microdiskectomy, L3-L4, right. The operation was done with EMG monitoring, SSEP monitoring, fluoroscopy, microscopic dissection. ROPER OPERATOR: EVONNE Ponce assisted with the surgery. She assisted with the exposure, the microdiskectomy and microdecompression as well as the closure. OPERATIVE INDICATIONS: The patient is a very pleasant 78-year-old man who has had difficulty with cervical spinal stenosis had undergone surgery for this as well as an upper thoracic disk herniation which also had surgery. His current problem is low back and significant right leg pain which failed conservative measures, in which on imaging studies a herniated lumbar disk at L3-L4 on the right was seen with nerve root compression. I recommended lumbar microsurgery. I spoke with him about the surgery, the risks, technique and the expected postoperative course and he wished to go ahead. DESCRIPTION OF PROCEDURE: Following general endotracheal anesthesia, the patient was positioned prone on the Remi table. Lumbar region prepped and draped in standard fashion. JESSICA hose and AV impulse boots were applied for DVT prophylaxis. The microscope was draped. Fluoroscopy was draped and brought in the field. Monitoring was established. Ancef 2 grams were given less than 1 hour prior to initiation of the surgery. Using fluoroscopic guidance, a midline incision was made from upper L3 to the superior aspect of L4 dissected down to skin and subcutaneous tissue, reflected the paraspinal muscles on the right and placed a Rice microdisk retractor. I brought in the microscope and using high speed air drill, I burred down a generous hemilaminotomy exposing the upper portion of the L4 region extending superiorly to above the pedicle of L3. I trimmed away thickened ligamentum flavum as well as boning creating this exposure. I did perform a partial foraminotomy at L3-L4 and gently retracted the dura and the root medially again with a microscope using microscopic technique. There was a moderately large disk herniation, which was degenerated and firm. There also was a very large epidural veins on top of this and I coagulated these, divided them increase mobility and allowed better exposure worked superiorly and began to tease down remove disk and fully decompressed the entire region. As I worked, the area became very well decompressed. I irrigated copiously with antibiotic solution. I had a wide bony exposure. I did use small amounts of bone wax as well as bipolar cautery for necessary for hemostasis. I irrigated copiously. I then removed the retractor, obtained hemostasis in the muscle and I closed the wound in layers with absorbable suture and skin was closed with 4-0 subcuticular stitch. The operation went very well and the patient was taken to the recovery room in excellent condition. I was quite pleased with the surgery. MERCEDEZ PADRON MD DR: SHELDON/madi JOB#: [id number] / [id number]
== END 2019-01-02 13:57 | disposition home or self-care (01) ==
LOC: SURG 06:25 → 4 SOUTHEST 12:53
PROVIDERS: ADMIT Neurological Surgery; ATTEND Neurological Surgery
DX: M51.16 Intervertebral disc disorders with radiculopathy, lumbar region (principal); M51.24 Other intervertebral disc displacement, thoracic region; M48.02 Spinal stenosis, cervical region; J44.9 Chronic obstructive pulmonary disease, unspecified; G43.909 Migraine, unspecified, not intractable, without status migrainosus; I10 Essential (primary) hypertension; R01.1 Cardiac murmur, unspecified; Z82.49 Family history of ischemic heart disease and other diseases of the circulatory system; Z82.0 Family history of epilepsy and other diseases of the nervous system; Z96.651 Presence of right artificial knee joint; Z96.611 Presence of right artificial shoulder joint
CPT/HCPCS: 63047; 76000; 88304; 88311; 94640; 97116; 97162; A7015; G0378; G0379; J0171; J0330; J0696; J1100; J1885; J2001; J2370; J2405; J2704; J3010; J3490; J7030; J7120; J7613; J7626; Q0144; J7512